=== PATIENT | female | born 1990 | race Caucasian/White ===

== ENCOUNTER 2020-08-08 13:27 | Emergency (ER) | payer OTHER, SELFPAY ==
--- NOTE | ~2020-08-08 | CT_ITS ---
EXAMINATION: CT brain wo con EXAM DATE: 08/08/2020 16:48 INDICATION: Headache, nausea and vomiting. Recent DVT treatment. TECHNIQUE: Spiral CT of the head was performed without contrast. Axial, coronal and sagittal images were reviewed. The dose-length product (DLP) for this examination was 605.33 mGy-cm. The exposure w as tailored according to patient size, and iterative reconstruction (ASIR) was used as additional dos e reduction technique. There is no prior study for comparison. FINDINGS: There is no acute intraparenchymal hemorrhage. No evidence of intraparenchymal brain mass lesion. No evidence of acute infarction. There is no mass effect or midline shift. The ventricles are normal in size. There are no extra-axial collections. There are no acute calvarial fractures. T he orbits are unremarkable. Soft tissue is unremarkable. The visualized sinuses and mastoid air tyron ls are well aerated. IMPRESSION: 1. Normal head CT examination. Reviewed, dictated and finalized at location A. [employer]
[2020-08-08 13:31] VITALS: BP 117/79; PULSE 79; RESP 20; TEMP 36.6; O2SAT 98
--- NOTE | 2020-08-08 13:44 | PC.NURSE ---
Report right side ocular migraine with radiation down her face with blurred vision on the right. She also report bilateral tension headache with pressure in both temples. Lastly she report photophobia and nausea for which she is taking zofran. Onset of headaches was 2 days ago and worsening since that time. Patient has taken OTC Tylenol and Excedrin with no relief of symptoms.
--- NOTE | 2020-08-08 14:13 | ED.HA ---
HPI - Headache General Chief Complaint: Headache Stated Complaint: Headache, Withdraw Time Seen by Provider: 08/08/20 13:43 Source: patient Mode of arrival: ambulatory Limitations: no limitations History of Present Illness HPI Narrative: This patient is a 30 year old female who presents for evaluation of headache, nausea and vomiting. She reports she has history of ocular migraine . She developed an ocular migraine right sided 2 days ago. She has associated nausea and vomiting. She reports she is unable to eat , and she now has a tension headache as well. She denies fever, chills, cough, sore throat, congestion, sob, or chest pain. She takes Xarelto for history of DVT but she has been off medication for a few days due to insurance issues. She denies any signs of DVT. Related Data Home Medications Medication Instructions Recorded Confirmed escitalopram oxalate [Lexapro] 20 mg PO DAILY 08/08/20 ondansetron [Zofran ODT] 4 mg PO Q6H 08/08/20 rivaroxaban [Xarelto] 10 mg PO DAILY 08/08/20 Allergies Allergy/AdvReac Type Severity Reaction Status Date / Time amoxicillin Allergy Anaphylactic Verified 08/08/20 13:40 Shock NSAIDS (Non-Steroidal Allergy Hives Verified 08/08/20 13:40 Anti-Inflamma metoclopramide [From Reglan] AdvReac Anxiety Verified 08/08/20 13:40 nickel AdvReac Other Verified 08/08/20 13:40 prochlorperazine AdvReac Anxiety Verified 08/08/20 13:40 [From Compazine] Review of Systems Review of Systems: All systems reviewed & are unremarkable except as noted in HPI and below PMFSH Past Medical History Medical History (Updated 08/08/20 @ 17:28 by Mercedes Pziano MD) DVT (deep venous thrombosis) Migraine headache Social History Social History (Updated 08/08/20 @ 14:17 by Mercedes Pizano MD) Smoking status: Never smoker Gender identity (if verbalized by the patient): Female Exam Const: General: no acute distress and alert Orientation/consciousness: patient oriented x3 HENMT: Head: normocephalic and atraumatic General nose exam: No nasal polyps present Face and sinus: face symmetric Mouth: Yes Normal oral and palatal mucosa present, Yes lip normal, Yes oropharynx normal and Yes moist mucous membranes Throat: posterior oropharynx normal Eyes: Pupils: Equal, round and reactive pupils present EOM: EOMs intact bilaterally Chest: Chest palpation & inspection: normal inspection of the chest Resp: Effort & Inspection: normal respiratory effort, no retractions and uses accessory muscles Auscultation: clear to auscultation bilaterally Cardio: Rate: regular rate Rhythm: regular rhythm Heart sounds: no murmurs GI: GI Palp: Yes Soft to palpation, No Tenderness to palpation present (GI) and No Guarding due to palpation present (GI) Auscultation: normal bowel sounds Skin: General skin exam: normal color Rashes: no rashes Neuro: General: patient oriented x3 and moves all extremities Psych: Mental Status: mental status grossly normal Affect: normal affect Course Reevaluation(s) Reevaluation #1: Patient reports her headache is a little better but it is 4/10. She does not think she could have covid so she does not want to be tested. I Discussed CT brain due to her being on xar Date: 08/08/20 Time: 16:27 Vital Signs Vital signs: Vital Signs Temperature 97.9 F 08/08/20 13:31 Pulse Rate 79 08/08/20 13:31 Respiratory Rate 20 08/08/20 13:31 Blood Pressure 117/79 08/08/20 13:31 Pulse Oximetry 98 08/08/20 13:31 Temperature 98.5 F 08/08/20 16:31 Pulse Rate 54 L 08/08/20 16:31 Respiratory Rate 18 08/08/20 16:31 Blood Pressure 114/78 08/08/20 16:31 Pulse Oximetry 100 08/08/20 16:31 MDM - Headache Lab Data Attestation: I reviewed the patient's lab results. Result diagrams: 08/08/20 14:33 08/08/20 14:33 Labs: Lab Results 08/08/20 08/08/20 08/08/20 Range/Units 14:33 14:33 14:33 WBC
[2020-08-08] MEDS: ONDANSETRON INJ 4 MG/2 ML VIAL IV PUSH (14:37)
[2020-08-08] MEDS: LACTATED RINGERS 1,000 ML 999 ML IV CONT ×2 (14:37→15:41)
[2020-08-08 14:44] LABS: Basophils Percent Auto 0.3 % (0.2-1.2); Eosinophils Absolute Auto 0.1 K/mm3 (0-0.3); Eosinophils Percent Auto 0.9 % (0-4.4); Hematocrit 39.1 % (37.0-47.0); Immature Granulocyte Absolute 0.02 K/mm3 (0.00-0.031); Immature Granulocyte Percent A 0.3 % (0-0.5); Lymphocytes Absolute Auto 2.66 K/mm3 (0.9-3.2); Lymphocytes Percent Auto 33.5 % (18.3-44.2); Mean Corpuscular HGB Conc 33.2 g/dl (32-36); Mean Corpuscular Hemoglobin 30.8 pg (26-34); Mean Corpuscular Volume 92.7 fl (80-100); Monocytes Absolute Auto 0.4 K/mm3 (0.1-0.6); Neutrophils Absolute Auto 4.8 K/mm3 (1.3-6.7); Platelet Count Result 161 k/mm3 (150-375); Red Blood Count 4.22 M/mm3 (4.2-5.4); Red Cell Distribution Width 12.4 % (11.5-14.5); White Blood Count 7.9 K/mm3 (4.5-10.0)
[2020-08-08 14:48] LABS: Add Urine Microscopic? YES; Appearance Urine Clear (Clear); Bilirubin Urine Negative (Negative); Blood Urine Negative (Negative); Color Urine Yellow (Yellow); Glucose Urine UA Negative (Negative); Ketones Urine Negative (Negative); Leukocyte Esterase Ur 1+ LEU/UL (Negative); Mucus Urine Few /lpf; Nitrate Urine Negative (Negative); Protein Urine Negative (Negative); RBC Urine 0-2 /hpf (0-2); Squamous Epithelial Cell Urine Few /hpf (Few); Urobilinogen Urine Negative mg/dL (<2.0); WBC Urine 0-3 /hpf
[2020-08-08 14:58] LABS: Alanine Aminotransferase 16 U/L (4-35); Albumin Level 4.3 g/dL (3.5-5.1); Alkaline Phosphatase 67 U/L (38-126); Anion Gap 5 mmol/L (8-16); Aspartate Amino Transferase 22 U/L (14-36); Bilirubin,Total 0.4 mg/dL (0.2-1.3); Blood Urea Nitrogen 8 mg/dL (7-17); Calcium 9.9 mg/dL (8.4-10.2); Carbon Dioxide 30 mmol/L (22-30); Chloride 103 mmol/L (98-107); Estimated CRCL calculation 91 ml/min; Estimated Glomerular Filt Rate > 60; Glucose 87 mg/dL (65-105); Potassium 3.5 mmol/L (3.4-5.0); Sodium 138 mmol/L (137-145)
[2020-08-08] MEDS: KETOROLAC 30 MG/ML VIAL (*BKC) IV PUSH (15:41)
[2020-08-08] MEDS: diphenhydrAMINE HCl INJ 50 MG/ML VIAL 25 MG IV PUSH (15:41)
[2020-08-08 16:31] VITALS: BP 114/78; PULSE 54; RESP 18; TEMP 36.9; O2SAT 100
== END 2020-08-08 17:15 | disposition home or self-care (01) ==
PROVIDERS: Emergency Provider General Practice
DX: R51.9 Headache, unspecified (principal); Z86.718 Personal history of other venous thrombosis and embolism; Z79.01 Long term (current) use of anticoagulants
CPT/HCPCS: 36415; 70450; 80053; 81001; 81025; 85025; 96361; 96374; 96375; 99284; J0131; J1200; J1885; J2405; J7120

== ENCOUNTER 2021-09-10 08:51 | Emergency (ER) | payer OTHER, SELFPAY ==
--- NOTE | ~2021-09-10 | XR_ITS ---
EXAMINATION: XR chest 1V portable EXAM DATE: 09/10/2021 10:00 INDICATION: chest pain SOB . TECHNIQUE: Portable AP frontal chest x-ray was obtained. There is no prior study for comparison. FINDINGS: The lungs are clear. There are no pleural effusions. The cardiomediastinal silhouette is within normal limits. There is no pneumothorax suspected. The bones and soft tissues are unremarkab le. IMPRESSION: Normal chest x-ray exam. Reviewed, dictated and finalized at location B. [employer]LYST IMPRESSION: Normal chest x-ray exam.
[2021-09-10 08:58] VITALS: BP 116/75; PULSE 62; RESP 18; O2SAT 99
[2021-09-10 09:03] VITALS: PULSE 70
--- NOTE | 2021-09-10 09:06 | ECG_ITS ---
Measurements Intervals [place] Rate: 61 P: 50 NC: 110 QRS: 64 QRSD: 90 T: 43 QT: 405 QTc: 409 Interpretive Statements SINUS RHYTHM WITH SHORT NC INTERVAL INCOMPLETE RIGHT BUNDLE BRANCH BLOCK BORDERLINE ECG Electronically Signed On 09-10-2021 13:01:32 [employer]IL DIPPER by Arjun Cordova D.O.
[2021-09-10 09:21] VITALS: O2SAT 100
[2021-09-10 09:23] LABS: Basophils Percent Auto 0.4 % (0.2-1.2); Eosinophils Absolute Auto 0.1 K/mm3 (0-0.3); Eosinophils Percent Auto 1.6 % (0-4.4); Hematocrit 37.4 % (37.0-47.0); Hemoglobin 12.6 g/dL (12.0-15.0); Immature Granulocyte Absolute 0.01 K/mm3 (0.00-0.031); Immature Granulocyte Percent A 0.2 % (0-0.5); Lymphocytes Absolute Auto 1.39 K/mm3 (0.9-3.2); Lymphocytes Percent Auto 31.2 % (18.3-44.2); Mean Corpuscular HGB Conc 33.7 g/dl (32-36); Mean Corpuscular Hemoglobin 30.8 pg (26-34); Mean Corpuscular Volume 91.4 fl (80-100); Monocytes Absolute Auto 0.5 K/mm3 (0.1-0.6); Monocytes Percent Auto 10.6 % (2.6-8.5); Neutrophils Absolute Auto 2.5 K/mm3 (1.3-6.7); Platelet Count Result 175 k/mm3 (150-375); Red Blood Count 4.09 M/mm3 (4.2-5.4); Red Cell Distribution Width 12.1 % (11.5-14.5); White Blood Count 4.5 K/mm3 (4.5-10.0)
[2021-09-10 09:28] VITALS: BP 128/77; PULSE 82; RESP 16; O2SAT 100
[2021-09-10 09:31] LABS: Alanine Aminotransferase 25 U/L (4-35); Albumin Level 4.5 g/dL (3.5-5.1); Alkaline Phosphatase 88 U/L (38-126); Anion Gap 8 mmol/L (8-16); Aspartate Amino Transferase 25 U/L (14-36); Bilirubin,Total 0.5 mg/dL (0.2-1.3); Blood Urea Nitrogen 10 mg/dL (7-17); Calcium 9.6 mg/dL (8.4-10.2); Carbon Dioxide 26 mmol/L (22-30); Chloride 105 mmol/L (98-107); Estimated CRCL calculation 79 ml/min; Estimated Glomerular Filt Rate > 60; Glucose 111 mg/dL (65-110); Lipase 145 U/L (23-300); Potassium 3.7 mmol/L (3.4-5.0); Sodium 139 mmol/L (137-145)
[2021-09-10 09:34] LABS: Prothrombin Time 22.1 Seconds (11.1-14.7)
[2021-09-10 09:35] LABS: Partial Thromboplastin Time 38.3 SECONDS (22.3-36.8)
[2021-09-10] MEDS: SODIUM CHLORIDE 0.9% IV 1,000 ML 999 ML IV CONT (09:36)
[2021-09-10] MEDS: ONDANSETRON INJ 4 MG/2 ML VIAL IV PUSH (09:37)
[2021-09-10 09:43] LABS: Troponin I < 0.012 ng/mL (0.000-0.034)
--- NOTE | 2021-09-10 09:48 | PC.NURSE ---
pt was in xray when she began feeling light headed when standing. xray reports syncopal episode. pt arrived back to room pale and diaphoretic. states she has had hx of syncope in the past for unknown reasons.
[2021-09-10] MEDS: ASPIRIN 81 MG CHEWABLE TABLET 324 MG PO (09:55)
[2021-09-10 10:00] VITALS: BP 125/79; PULSE 56; RESP 18; O2SAT 100
--- NOTE | 2021-09-10 10:09 | ED.CHESTPAIN ---
HPI - Chest Pain General Chief Complaint: Chest Pain <Cyril Ibarra PA-C - Last Filed: 09/10/21 11:08> Stated Complaint: chest pain <Cyril Ibarra PA-C - Last Filed: 09/10/21 11:08> Time Seen by Provider: 09/10/21 09:58 <Cyril Ibarra PA-C - Last Filed: 09/10/21 11:08> Source: patient <Cyril Ray Ibarra PA-C - Last Filed: 09/10/21 11:08> Mode of arrival: ambulatory <Cyril Ibarra PA-C - Last Filed: 09/10/21 11:08> History of Present Illness HPI narrative: 31-year-old female with a history of migraines and DVT (Xarelto) presents to the ED with chest pain, intrascapular back pain, nausea, and vomiting. She received the COVID-19 booster on 09/08/2021. Current symptoms began yesterday. She has been experiencing persistent retrosternal chest pain which radiates through to the mid back since that time. This is associated with nausea and several episodes of emesis. She also complains of diaphoresis. Chest pain is aggravated somewhat with deep inspiration. She denies recent history of documented fever, cough, shortness of breath, abdominal pain, hematemesis, diarrhea, melena, or hematochezia. She denies the regular use of alcohol or NSAIDs. Patient states she is compliant with Xarelto, never missing a dose. She denies recent history of lower extremity pain, lower extremity trauma, or prolonged immobilization. No history of PE. She is a non-smoker. Patient was given Zofran upon arrival to the ED which is providing moderate relief of nausea. <Cyril Ibarra PA-C - Last Filed: 09/10/21 11:08> Related Data Home Medications: Home Medications Medication Instructions Recorded Confirmed escitalopram oxalate [Lexapro] 20 mg PO DAILY 08/08/20 09/10/21 ondansetron [Zofran ODT] 4 mg PO Q6H 08/08/20 09/10/21 rivaroxaban [Xarelto] 10 mg PO DAILY 08/08/20 09/10/21 <Cyril Ibarra PA-C - Last Filed: 09/10/21 11:08> Allergies/Adverse Reactions: Allergies Allergy/AdvReac Type Severity Reaction Status Date / Time amoxicillin Allergy Anaphylactic Verified 09/10/21 09:04 Shock NSAIDS (Non-Steroidal Allergy Hives Verified 09/10/21 09:04 Anti-Inflamma metoclopramide [From Reglan] AdvReac Anxiety Verified 09/10/21 09:04 nickel AdvReac Other Verified 09/10/21 09:04 prochlorperazine AdvReac Anxiety Verified 09/10/21 09:04 [From Compazine] <Cyril Ibarra PA-C - Last Filed: 09/10/21 11:08> Review of Systems Review of Systems: CONSTITUTIONAL: Denies fever, chills, or sweats. EYES: Denies visual changes, redness, or discharge. ENT: Denies rhinorrhea, congestion, sore throat, or otalgia. CARDIOVASCULAR: + chest pain; no palpitations or edema. RESPIRATORY: Denies cough or dyspnea. GASTROINTESTINAL: + nausea; Denies abdominal pain, vomiting, or diarrhea. GENITOURINARY: Denies dysuria or hematuria. SKIN: Denies rash or itching. MUSCULOSKELETAL: Denies back pain, joint pain, or myalgia. NEUROLOGIC: Denies headache, numbness, dizziness, or weakness. PSYCHIATRIC: Denies anxiety or depression. <Cyril Ibarra PA-C - Last Filed: 09/10/21 11:08> All systems reviewed & are unremarkable except as noted in HPI and below <Cyril Ibarra PA-C - Last Filed: 09/10/21 11:08> [facility] Past Medical History Medical History: Medical History DVT (deep venous thrombosis) Migraine headache <Cyril Ibarra PA-C - Last Filed: 09/10/21 11:08> Social History Social History: Social History Smoking status: Never smoker Gender identity (if verbalized by the patient): Female <Cyril Ibarra PA-C - Last Filed: 09/10/21 11:08> Exam Narrative: GENERAL: Thin; Well-appearing, well-nourished, and in no acute distress. HEAD: Normocephalic, atraumatic. EYES: PERRLA and EOMI. ENT: Nares clear, no rhinorrhea or epistaxis. Mucous membranes moist. Orop
[2021-09-10 10:27] LABS: Lipase 139 U/L (23-300)
[2021-09-10 11:49] VITALS: BP 102/63; PULSE 66; RESP 18; O2SAT 100
== END 2021-09-10 11:50 | disposition home or self-care (01) ==
PROVIDERS: Physician Assistant; Emergency Provider Emergency Medicine
DX: R07.9 Chest pain, unspecified (principal); Z86.718 Personal history of other venous thrombosis and embolism; Z79.01 Long term (current) use of anticoagulants
CPT/HCPCS: 36415; 71045; 80053; 83690; 84484; 85025; 85610; 85730; 93005; 96361; 96374; 99284; A9270; J2405; J7030

== ENCOUNTER 2021-11-19 07:14 | Emergency (ER) | payer OTHER, SELFPAY ==
--- NOTE | ~2021-11-19 | US_ITS ---
EXAMINATION: US pelvic complete w TV DATE: 11/19/2021 11:47 INDICATION: Abdominal pain. Ovarian cysts on CT. TECHNIQUE: Multiple transabdominal and endovaginal sonographic images of the pelvis were obtained. COMPARISON: None. FINDINGS: The uterus measures 9.1 x 5.6 x 4.4 cm. Linear echogenic and shadowing IUD in expected position withi n the endometrial canal with normal endometrial complex thickness of 2-3 mm. The right ovary measures 6.3 x 5.2 x 3.1 cm and contains a 5.8 x 4.5 x 2.8 cm simple appearing anechoic cyst. There is also a 2.4 x 2.3 x 2.1 cm anechoic cyst within the left ovary which measures 3.3 x 3.4 x 2.8 cm. No interna l septations or solid nodular components to the bilateral ovarian cysts. Vascular flow identified in both ovaries on color Doppler. Small amount of likely physiologic anechoic free fluid along side the right ovary. IMPRESSION: 1. Simple appearing bilateral ovarian cysts measuring 5.8 cm on the right and 2.4 cm on the left. 2. IUD in expected position within the normal-appearing endometrial canal. Reviewed, dictated and finalized at location A. IMPRESSION: 1. Simple appearing bilateral ovarian cysts measuring 5.8 cm on the right and 2 .4 cm on the left. 2. IUD in expected position within the normal-appearing endometrial canal.
--- NOTE | ~2021-11-19 | CT_ITS ---
EXAMINATION: CT abdomen pelvis w con DATE: 11/19/2021 09:59 INDICATION: Abdominal pain, nausea and vomiting TECHNIQUE: Computed tomography (CT) of the abdomen and pelvis was performed with 100 mL Omnipaque-350 intravenous contrast. with 100 mL Omnipaque-350 The dose-length product was 201.50 mGy-cm. COMPARISON: None FINDINGS: Lung bases are clear. Heart size is normal. No nonspecific heterogeneous enhancement pattern of the l iver without discrete nodules. The smaller hepatic veins remain unopacified with contrast with small amount of likely refluxed contrast in the normal caliber more central hepatic veins remain into the i nferior vena cava which can be seen with tricuspid regurgitation. Gallbladder, spleen, pancreas, bila teral adrenal glands and kidneys are normal. Likely normal appendix identified in the right hemipelvi s with no pericecal inflammatory stranding to suggest acute appendicitis. No abnormal bowel wall thic kening or obstruction. Partially decompressed bladder is normal. T-shaped IUD in expected position wi thin the anteverted uterus. 2.4 cm left ovarian cyst/follicle. Small amount of fluid in the cul-de-sa c, the larger portion of which appears loculated within a 5.7 x 3.8 x 3.9 cm likely thin-walled cyst arising from the posterior margin of the right ovary with small amount of adjacent likely physiologic free fluid. No abscess or free intraperitoneal gas. No pathologically enlarged abdominal or pelvic l ymphadenopathy. Bones are unremarkable. IMPRESSION: 1. Bilateral adnexal cysts the larger on the right measuring 5.7 cm in maximal diameter with stasis p ulmonary likely physiologic free fluid in the cul-de-sac. 2. Subtle heterogeneous enhancement pattern to the liver without discrete nodules or masses likely re lated to phase of contrast although would correlate with liver enzyme levels. Reviewed, dictated and finalized at location A. IMPRESSION: 1. Bilateral adnexal cysts the larger on the right measuring 5.7 cm in maximal diameter with stasis pulmonary likely physiologic free fluid in the cul-de-sac. 2. Subtle heterogeneous enhancement pattern to the liver without discrete nodul es or masses likely related to phase of contrast although would correlate with liver enzyme levels.
[2021-11-19 07:39] VITALS: BP 129/83; PULSE 118; RESP 22; TEMP 36.4; O2SAT 100
--- NOTE | 2021-11-19 07:57 | ED.NAVMDI ---
HPI - Nausea/Vomiting/Diarrhea General Chief complaint: Nausea/Vomiting/Diarrhea Stated complaint: i'm having serotonin syndrome Time Seen by Provider: 11/19/21 07:41 Source: RN notes reviewed History of Present Illness HPI Narrative: Patient presents emergency room from home for nausea vomiting diarrhea. Patient states symptoms began 3 days ago states she is had numerous episodes of nausea vomiting diarrhea. States that it is associated with abdominal pain described as cramping throughout the abdomen. She also states that she has been having muscle spasms in her arms and legs she denies any fevers or chills chest pain shortness of breath or any other symptoms. States she took Zofran at home with minimal relief Related Data Home Medications Medication Instructions Recorded Confirmed ondansetron [Zofran ODT] 4 mg PO Q6H 08/08/20 11/19/21 rivaroxaban [Xarelto] 10 mg PO DAILY 08/08/20 11/19/21 venlafaxine 75 mg PO HS 11/19/21 11/19/21 Allergies Allergy/AdvReac Type Severity Reaction Status Date / Time amoxicillin Allergy Anaphylactic Verified 11/19/21 07:43 Shock NSAIDS (Non-Steroidal Allergy Hives Verified 11/19/21 07:43 Anti-Inflamma metoclopramide [From Reglan] AdvReac Anxiety Verified 11/19/21 07:43 nickel AdvReac Other Verified 11/19/21 07:43 prochlorperazine AdvReac Anxiety Verified 11/19/21 07:43 [From Compazine] Review of Systems Review of Systems: Gen.: Denies fevers or chills ENT: Denies congestion Respiratory: Denies shortness of breath or cough CV: Denies chest pain or palpitations GI: See HPI denies burning, urgency, frequency or hematuria Musculoskeletal: Denies back pain or muscle pain Neuro: Denies numbness, tingling, weakness or focal weakness Skin: Denies rash Except as documented, all other systems reviewed and negative PMFSH Past Medical History Medical History DVT (deep venous thrombosis) Migraine headache Social History Social History Smoking status: Never smoker Gender identity (if verbalized by the patient): Female Exam Narrative: APPEARANCE: No acute distress, nontoxic, resting in bed HEENT: Normocephalic, atraumatic, OMM RESPIRATORY: No respiratory distress, clear to auscultation bilaterally with no rhonchi wheezing or rales CARDIOVASCULAR: RRR s murmur ABDOMINAL: Soft nondistended diffusely tender palpation no rebound or guard MUSCULOSKELETAl: Moves all extremities. No clubbing, cyanosis or edema. NEURO: Awake and alert. Following commands, speech normal, no focal deficits SKIN:: Warm, dry. Normal Color PSYCHIATRIC: Normal affect/mood Course Course Emergency Course: Patient states that they are feeling much better at this time. States abdominal pain has resolved. Repeat abdominal exam shows the patient's abdomen to be soft and nontender. Discussed with patient results of workup and diagnosis. Discussed need for follow-up with primary care physician, reasons to return to the emergency department in proper use of medication. Patient understands and agrees to current treatment plan Vital Signs Vital signs: Vital Signs Temperature 97.6 F 11/19/21 07:39 Pulse Rate 118 H 11/19/21 07:39 Respiratory Rate 22 H 11/19/21 07:39 Blood Pressure 129/83 11/19/21 07:39 Pulse Oximetry 100 11/19/21 07:39 Temperature 97.6 F 11/19/21 07:39 Pulse Rate 74 11/19/21 10:28 Respiratory Rate 18 11/19/21 10:28 Blood Pressure 110/64 11/19/21 10:28 Pulse Oximetry 100 11/19/21 10:28 MDM - Nausea/Vomiting/Diarrhea MDM Narrative Medical decision making narrative: Patient's abdomen is soft without significant pain or signs of surgical abdomen on serial exams. Lab and x-ray evaluations are reviewed and patient is felt to be a reasonable candidate for outpatient management. Patient was instructed as to limitations of x-ray and laboratory e
[2021-11-19] MEDS: SODIUM CHLORIDE 0.9% IV 1,000 ML 999 ML IV CONT ×2 (07:59→09:18)
[2021-11-19] MEDS: LORazepam INJ (*CRX) 2 MG/ML VIAL 1 MG IV PUSH (08:00)
[2021-11-19 08:01] LABS: Basophils Percent Auto 0.3 % (0.2-1.2); Eosinophils Percent Auto 0.1 % (0-4.4); Hematocrit 40.8 % (37.0-47.0); Hemoglobin 13.5 g/dL (12.0-15.0); Immature Granulocyte Absolute 0.04 K/mm3 (0.00-0.031); Immature Granulocyte Percent A 0.4 % (0-0.5); Lymphocytes Absolute Auto 2.28 K/mm3 (0.9-3.2); Lymphocytes Percent Auto 24.3 % (18.3-44.2); Mean Corpuscular HGB Conc 33.1 g/dl (32-36); Mean Corpuscular Hemoglobin 30.2 pg (26-34); Mean Corpuscular Volume 91.3 fl (80-100); Mean Platelet Volume 10.7 fl (7.4-10.4); Monocytes Absolute Auto 0.4 K/mm3 (0.1-0.6); Monocytes Percent Auto 4.4 % (2.6-8.5); Neutrophils Absolute Auto 6.6 K/mm3 (1.3-6.7); Neutrophils Percent Auto 70.5 % (45.5-73.1); Platelet Count Result 223 k/mm3 (150-375); Red Blood Count 4.47 M/mm3 (4.2-5.4); Red Cell Distribution Width 12.3 % (11.5-14.5); White Blood Count 9.4 K/mm3 (4.5-10.0)
[2021-11-19 08:10] LABS: Alanine Aminotransferase 19 U/L (4-35); Albumin Level 4.9 g/dL (3.5-5.1); Alkaline Phosphatase 96 U/L (38-126); Anion Gap 13 mmol/L (8-16); Aspartate Amino Transferase 26 U/L (14-36); Bilirubin,Total 0.8 mg/dL (0.2-1.3); Blood Urea Nitrogen 6 mg/dL (7-17); Calcium 9.7 mg/dL (8.4-10.2); Carbon Dioxide 20 mmol/L (22-30); Chloride 106 mmol/L (98-107); Estimated CRCL calculation 91 ml/min; Estimated Glomerular Filt Rate > 60; Glucose 117 mg/dL (65-110); Lipase 114 U/L (23-300); Sodium 139 mmol/L (137-145)
[2021-11-19 08:10] LABS: Magnesium 2.1 mg/dL (1.6-2.3)
[2021-11-19 09:18] VITALS: BP 119/80; BP 133/79; PULSE 106; PULSE 114
[2021-11-19] MEDS: ONDANSETRON INJ 4 MG/2 ML VIAL IV PUSH (09:18)
[2021-11-19 09:20] VITALS: BP 120/73; PULSE 136
[2021-11-19 09:22] LABS: INR 1.1
[2021-11-19 09:23] LABS: Partial Thromboplastin Time 29.2 SECONDS (22.3-36.8)
[2021-11-19 10:19] LABS: Add Urine Microscopic? YES; Appearance Urine Cloudy (Clear); Bilirubin Urine Negative (Negative); Blood Urine Negative (Negative); Color Urine Yellow (Yellow); Glucose Urine UA Negative (Negative); Ketones Urine 2+ mg/dL (Negative); Leukocyte Esterase Ur Negative LEU/UL (Negative); Mucus Urine Moderate /lpf; Nitrate Urine Negative (Negative); Protein Urine 1+ mg/dL (Negative); Specific Grav Ur 1.021 (1.001-1.035); Squamous Epithelial Cell Urine Rare /hpf (Few); Urobilinogen Urine Negative mg/dL (<2.0); WBC Urine 0-3 /hpf
[2021-11-19 10:28] VITALS: BP 110/64; PULSE 74; RESP 18; O2SAT 100
[2021-11-19 12:30] VITALS: BP 109/63; PULSE 72; RESP 18; O2SAT 98
== END 2021-11-19 13:20 | disposition home or self-care (01) ==
PROVIDERS: Emergency Provider Emergency Medicine
DX: N83.202 Unspecified ovarian cyst, left side (principal); N83.201 Unspecified ovarian cyst, right side; R11.2 Nausea with vomiting, unspecified; R10.32 Left lower quadrant pain; R10.31 Right lower quadrant pain; Z86.718 Personal history of other venous thrombosis and embolism; Z79.01 Long term (current) use of anticoagulants; Z97.5 Presence of (intrauterine) contraceptive device
CPT/HCPCS: 36415; 74177; 76830; 76856; 80053; 81001; 81025; 83690; 83735; 85025; 85610; 85730; 96361; 96374; 96375; 99284; J2060; J2405; J7030; Q9967